=== PATIENT | female | born 1995 | race Caucasian/White ===

== ENCOUNTER 2017-06-10 07:01 | Inpatient (IN) | payer OTHER ==
[~2017-06-10] VITALS: Ht 175.3 cm; Wt 84.0 kg
--- NOTE | ~2017-06-10 | OR ---
PATIENT'S NAME: TESS GARCIA [facility] AGE: 22 Y [address] ROOM: [place] [address] LOCATION: [facility] ADMIT DATE: 06/10/2017 OR/Procedure Report DISCHARGE DATE: 06/12/2017 FAMILY PHYSICIAN: PHYSICIAN, NO ATTENDING PHYSICIAN: Maria Elena Woodard SURGEON: Maria Elena Woodard MD HUMANITIES AND LANGUAGES PROFESSOR: DATE OF PROCEDURE: 06/11/2017 PREOPERATIVE DIAGNOSES: 1. Intrauterine at term. 2. Induction of labor. POSTOPERATIVE DIAGNOSES: 1. Intrauterine at term. 2. Induction of labor. PROCEDURE: Spontaneous vaginal delivery. ESTIMATED BLOOD LOSS: 300 mL. ANESTHESIA: Epidural. FINDINGS: Male , score 8 and 9, weight 8 pounds 12 ounces. Intact placenta, 3-vessel cord. Second-degree perineal laceration. Clear amniotic fluid. INDICATIONS: This patient is a 22-year-old 1 female, who is 39 weeks and 5 days gestation, who came in for an induction of labor. She had Cytotec followed by [facility]. She took a while to get to active labor, and once she got to active labor, she actually progressed along a normal labor curve to complete and underwent expulsive efforts for 30 minutes. DESCRIPTION OF PROCEDURE: With expulsive efforts, the head delivered over an intact perineum. The rest of the fetus delivered. The nose and mouth were bulb suctioned. The cord was clamped and cut. The infant was handed to awaiting team. Cord blood was drawn. The placenta delivered with manual traction. Cervix, vagina, and perineum were examined. There was a second- degree perineal laceration noted and repaired in a standard fashion with Vicryl suture. COMPLICATIONS: None. CONDITION: Mom stable in room. Infant to nursery. PATIENT'S NAME: TESS GARCIA [facility] AGE: 22 Y [address] ROOM: [place] [address] LOCATION: [facility] ADMIT DATE: 06/10/2017 OR/Procedure Report DISCHARGE DATE: 06/12/2017 FAMILY PHYSICIAN: , NO ATTENDING PHYSICIAN: Maria Elena Woodard MD DOUG DARDENJ/modl /[id number] d: 06/21/17930 t: 06/30/17 2039, OPERATIVE SUMMARY
[~2017-06-10 07:01] MED LIST: ACETAMINOPHEN325 MG PO; PRENATAL 1+1)(P1 TAB PO
[2017-06-10 08:15] LABS: BASOPHIL % 0.4 %; EOSINOPHIL # 0.3 K/uL (0.0-0.5); EOSINOPHIL % 2.6 %; HEMATOCRIT 37.9 % (33.0-46.0); HEMOGLOBIN 13.5 g/dL (11.0-15.0); IMMATURE GRANULOCYTE # 0.3 K/uL (0.0-0.3); IMMATURE GRANULOCYTE % 2.5 %; LYMPHOCYTE # 2.7 K/uL (0.8-4.0); LYMPHOCYTE % 25.9 %; MCH 31.6 pg (27.0-34.0); MCHC 35.6 gm/dL (32.0-36.5); MCV 88.8 fl (83.0-98.0); MONOCYTE # 0.9 K/uL (0.0-1.0); MONOCYTE % 8.5 %; MPV 10.2 fl (9.4-12.4); NEUTROPHIL # (ANC) 6.4 K/uL (1.8-7.8); NEUTROPHIL % 60.1 %; NRBC % 0 /100WBC (0-0.00); PLATELET COUNT 186 K/uL (150-450); RBC 4.27 M/uL (3.50-5.00); RDW-CV 11.9 % (11.9-14.6); WBC 10.6 K/uL (4.0-11.0)
--- NOTE | 2017-06-12 04:56 | NUR ---
vss, fundus firm, at umbilicus, small flow. certificate and videos done. 2 percocet given at 1910. pt did not like how they made her feel so requested to only take 1 from then on. motrin given at 2319. and 1 percocet given at 0200. possibly home today.
[2017-06-12 05:38] LABS: BASOPHIL # 0.1 K/uL (0.0-0.2); BASOPHIL % 0.3 %; EOSINOPHIL # 0.3 K/uL (0.0-0.5); EOSINOPHIL % 1.6 %; HEMATOCRIT 32.6 % (33.0-46.0); HEMOGLOBIN 11.3 g/dL (11.0-15.0); IMMATURE GRANULOCYTE # 0.2 K/uL (0.0-0.3); LYMPHOCYTE # 3.6 K/uL (0.8-4.0); MCH 31.7 pg (27.0-34.0); MCHC 34.7 gm/dL (32.0-36.5); MCV 91.6 fl (83.0-98.0); MONOCYTE # 1.1 K/uL (0.0-1.0); MONOCYTE % 6.5 %; MPV 10.3 fl (9.4-12.4); NEUTROPHIL # (ANC) 11.3 K/uL (1.8-7.8); NEUTROPHIL % 68.6 %; NRBC % 0 /100WBC (0-0.00); PLATELET COUNT 152 K/uL (150-450); RBC 3.56 M/uL (3.50-5.00)
[2017-06-12 05:40] LABS: WBC 16.4 K/uL (4.0-11.0)
[2017-06-12] MEDS ORDERED: APNO (15:46)
[2017-06-12] MEDS ORDERED: DERMOPLAST SPRA56 GM TOP (15:47)
[2017-06-12] MEDS ORDERED: MOTRIN800 MG PO (15:48)
[2017-06-12] MEDS ORDERED: PERCOCET 5-3251 EACH PO (15:49)
== END 2017-06-12 16:30 | disposition disaster alternative care site (69) | DRG 775 ==
LOC: GOBM 07:01 → GOBS 07:01 → GOBM 07:02 → GOBS 07:02 → GOBM 06-12 09:48 → GOBS 06-12 16:30
PROVIDERS: ADMIT Obstetrics & Gynecology
PROC: 10E0XZZ Delivery of Products of Conception, External Approach (ICD-10-PCS; principal; 2017-06-11)
PROC: 3E033VJ Introduction of Other Hormone into Peripheral Vein, Percutaneous Approach (ICD-10-PCS; principal; 2017-06-11)
PROC: 3E0P7GC Introduction of Other Therapeutic Substance into Female Reproductive, Via Natural or Artificial Opening (ICD-10-PCS; principal; 2017-06-11)
PROC: 0KQM0ZZ Repair Perineum Muscle, Open Approach (ICD-10-PCS; principal; 2017-06-11)
DX: O76 Abnormality in fetal heart rate and rhythm complicating labor and delivery (principal); O70.1 Second degree perineal laceration during delivery; Z3A.39 39 weeks gestation of pregnancy; Z37.0 Single live birth
CPT/HCPCS: J2001; J2590; J3010; J7120